=== PATIENT | female | born 1960 | race Caucasian/White ===

== ENCOUNTER 2017-08-05 22:28 | Emergency (ER) | payer BC ==
[~2017-08-05] VITALS: Ht 167.6 cm; Wt 113.4 kg
[~2017-08-05 22:28] MED LIST: POTA10IN IV
[2017-08-05 22:57] LABS: Basophils # (auto) 0.1 uL; Eosinophils # (auto) 0 uL; Hemoglobin 15.3 g/dL (12.2-16.2); Lymphocytes % (auto) 19.2 % (10.0-50.0); Red Cell Distribution Width 15.9 % (11.8-14.3)
[2017-08-05 22:59] LABS: Basophils % (auto) 1.1 % (0.0-2.0); Hematocrit 46.7 % (36.0-46.0); Lymphocytes # (auto) 2.2 uL; Mean Corpuscular Hemoglobin 25.9 pg (28.0-32.0); Mean Corpuscular Hgb Conc. 32.8 g/dL (32.0-36.0); Monocytes # (auto) 1.1 uL; Monocytes % (auto) 9.9 % (0.0-12.0); Neutrophils % (auto) 69.8 % (37.0-80.0); Nucleated Red Blood Cells % 0.1 %; Platelet Count (auto) 389 10^3/uL (140-450); Red Blood Cells 5.91 10^6/uL (4.0-5.20); White Blood Cell 11.4 10^3/uL (4.4-10.8)
[2017-08-05 23:14] LABS: INR 0.93 (0.9-1.15)
[2017-08-05 23:18] LABS: Albumin 3.2 g/dL (3.4-5.0); Anion Gap 12 (5-15); Calcium 8.6 mg/dL (8.5-10.1); Carbon Dioxide 24 mmol/L (21-32); Chloride 106 mmol/L (98-107); Glucose 118 mg/dL (74-106); Magnesium 2.1 mg/dL (1.6-2.6); Potassium 3.5 mmol/L (3.5-5.1); Sodium 142 mmol/L (136-145)
[2017-08-05 23:24] LABS: Alanine Aminotransferase 19 U/L (13-56); Alkaline Phosphatase 89 U/L (45-117); Aspartate Aminotransferase 12 U/L (15-37); BUN/Creatinine Ratio 14.4; Bilirubin, Total 0.4 mg/dL (0.2-1.0); Blood Urea Nitrogen 15 mg/dL (7-18); GFR African American 70 mL/min; GFR Non-African American 58 mL/min; Total Protein 6.4 g/dL (6.4-8.2)
[2017-08-06 00:18] VITALS: BP 138/74
== END 2017-08-06 01:08 | disposition home or self-care (01) ==
LOC: EDBD 22:28 → ER 22:28
DX: I47.1 Supraventricular tachycardia (principal); E03.9 Hypothyroidism, unspecified; I10 Essential (primary) hypertension
CPT/HCPCS: 36415; 71045; 80053; 83735; 83880; 84443; 84484; 85025; 85379; 85610; 85730; 93005

== ENCOUNTER 2018-05-23 06:06 | Inpatient (IN) | payer BC ==
[~2018-05-23] VITALS: Ht 172.7 cm; Wt 110.1 kg
[~2018-05-23 06:06] MED LIST changes: +ALPR1TAB PO; +BUME2TAB3 PO; +CHOL20009 PO; +LEVO100T8 PO; +MAGN400T5 PO; +MET50T PO; -POTA10IN IV; +QUET100T38 PO; +SPIR25TA8 PO
[2018-05-23] MEDS ORDERED: MIDAZOLAM HCL 1MG/1ML-2 ML VIAL ONE (07:02)
[2018-05-23] MEDS ORDERED: fentaNYL CITRATE 100 MCG/2 ML VL ONE (07:02)
[2018-05-23] MEDS ORDERED: LIDOCAINE 2%HCL (LOCAL ANESTH.) INJ 20ML MDV ONE (07:03)
[2018-05-23] MEDS ORDERED: ASPirin 325 MG TAB ONE (09:20)
[2018-05-23] MEDS ORDERED: NITROGLYCERIN 0.4 MG SL TAB SL PRN (09:45)
[2018-05-23] MEDS ORDERED: MORPHINE SULF INJ 2 MG/ML SYRINGE 1ML IV PRN (09:45)
[2018-05-23] MEDS ORDERED: ACETAMINOPHEN 500 MG TAB PO PRN (09:45)
[2018-05-23] MEDS ORDERED: ONDANSETRON HCL 4 MG/2 ML VIAL IV PRN (09:45)
[2018-05-23] MEDS ORDERED: HYDROcodone-ACET 5/325MG TAB PO PRN (09:45)
[2018-05-23] MEDS ORDERED: BUMETANIDE 1 MG TAB PO SCH (10:00)
[2018-05-23] MEDS ORDERED: SPIRONOLACTONE 25 MG TAB PO SCH (10:00)
[2018-05-23] MEDS ORDERED: MAGNESIUM OXIDE 400 MG TAB PO SCH (10:00)
[2018-05-23] MEDS ORDERED: CHOLECALCIFEROL (VITD3) 1,000 UNIT TAB PO SCH (10:00)
[2018-05-23] MEDS ORDERED: MAGNESIUM OXIDE 400 MG TAB ONE (11:55)
[2018-05-23] MEDS ORDERED: LOSARTAN POTASSIUM 25 MG TAB ONE (11:55)
[2018-05-23] MEDS ORDERED: CHOLECALCIFEROL (VITD3) 1,000 UNIT TAB ONE (11:55)
[2018-05-23] MEDS ORDERED: SPIRONOLACTONE 25 MG TAB ONE (11:55)
[2018-05-23] MEDS: LOSARTAN POTASSIUM 25 MG TAB PO SCH ×2 (12:00→21:00)
[2018-05-23] MEDS: SODIUM CHLOR 0.9% PF (SALINE LOCK) 10ML VIAL/SYR IV SCH ×2 (15:00→23:41)
[2018-05-23 20:15] VITALS: BP 139/82
--- NOTE | 2018-05-23 20:15 | NUR ---
Telemetry admit from [facility] JABARI ARRIAZA admitted to Telemetry unit after SBAR received. Patient oriented to Adrianna queen RN, unit, room, bed, and unit policies regarding patient care and visiting hours. Patient now on continuous telemetry monitoring, tele box # [id number] and telemetry reading on arrival to unit is SINUS RHYTHM AT 83. Patient placed on bedside oxygen, weighed by bedscale and encouraged to call if they need something. All questions and concerns addressed, patient verbalized understanding. Note: DRESSING TO RIGHT GROIN, CLEAN, DRY AND INTACT. NO BRUISING NOTED TO RIGHT GROIN.
[2018-05-23 20:30] VITALS: BP 139/82
[2018-05-23] MEDS ORDERED: QUEtiapine FUMARATE 100 MG TAB PO SCH (22:00)
[2018-05-23] MEDS ORDERED: ALPRAZOLAM 1 MG PO SCH (22:00)
--- NOTE | 2018-05-23 23:00 | NUR ---
SPOKE WITH HOSPITALIST, MADE AWARE THAT PATIENT'S OWN MEDICATION OF XANAX XR IS NOT AVAILABLE AND PATIENT IS REQUESTING FOR XANAX, ORDERED XANAX 0.5 MG PO ONE DOSE AT THIS TIME. WILL NOTIFY HOSPITALIST IN THE MORNING. CONTINUE PATIENT CARE.
[2018-05-23] MEDS ORDERED: ALPRAZolam 0.5 MG TAB PO ONE (23:30)
--- NOTE | 2018-05-24 02:31 | NUR ---
RESTING ON BED AT THIS TIME WITH NO RESPIRATORY DISTRESS NOTED. CONTINUE PATIENT CARE.
[2018-05-24 04:53] VITALS: BP 128/67
[2018-05-24] MEDS: SODIUM CHLOR 0.9% PF (SALINE LOCK) 10ML VIAL/SYR IV SCH (06:13)
[2018-05-24] MEDS ORDERED: LEVOTHYROXINE SODIUM 100 MCG TAB PO SCH (07:00)
--- NOTE | 2018-05-24 07:11 | NUR ---
DR. MATHIS CALLED BACK GAVE DC ORDER.
[2018-05-24] MEDS ORDERED: ASPI-231 PO (07:16)
[2018-05-24] MEDS ORDERED: LOSA25TA8 PO (07:16)
--- NOTE | 2018-05-24 07:20 | NUR ---
OPENING SHIFT PATIENT AWAKE, ALERT, AND ORIENTED X4. RESPIRATIONS EVEN AND UNLABORED. NO S/S OF DISTRESS, SOB, OR PAIN. DISCUSSED POC WITH PATIENT. PATIENT VERBALIZED UNDERSTANDING. BED IS IN LOWEST POSITION, SIDE RAILS UP X2, AND CALL LIGHT WITHIN REACH. WILL CONTINUE TO MONITOR Q1 HOUR AND PRN
[2018-05-24 07:27] VITALS: BP 128/67
--- NOTE | 2018-05-24 08:31 | NUR ---
PRESCRIPTIONS CALLED IN MEDICATIONS CALLED IN TO [facility] LOCATED OFF OF [facility] [phone] PHARMACY NOT OPEN. MESSAGE LEFT WITH INFORMATION REQUESTED BY PHARMACY: PATIENT NAME AND . RN NAME AND CONTACT INFORMATION/ HOSPITAL EMPLOYED. PRESCRIBING PHYSICIAN AND CONTACT INFORMATION. MEDICATION PRESCRIPTION INFORMATION
--- NOTE | 2018-05-24 08:36 | NUR ---
DISCHARGE PAPER WORK D/C PAPER WORK SIGNED AND EDUCATION PROVIDED. PATIENT IS AWAITING TRANSPORTATION FROM HER INSTRUCTED TO CALL R.N. WHEN ARRIVES
[2018-05-24 09:13] VITALS: BP 102/73
--- NOTE | 2018-05-24 09:30 | NUR ---
DISCHARGE Discharge instructions given as ordered. Encourage to follow up with Dr. Vilchis as instructed. All questions and concerns addressed. Patient verbalized understanding. IV removed with catheter intact. Telemetry unit returned to [facility]. Patient taken to vehicle via wheelchair with all personal belongings, accompanied by staff and family member. No distress noted at time of departure.
[2018-05-24] MEDS ORDERED: ASPirin 81 mg TAB PO SCH (10:00)
== END 2018-05-24 09:30 | disposition home or self-care (01) | DRG 274 ==
LOC: CATH 06:06 → TELE-CENTR 20:30
PROVIDERS: ADMIT Internal Medicine; ATTEND Internal Medicine
PROC: 02583ZZ Destruction of Conduction Mechanism, Percutaneous Approach (ICD-10-PCS; principal; 2018-05-23)
PROC: 4A0234Z Measurement of Cardiac Electrical Activity, Percutaneous Approach (ICD-10-PCS; 2018-05-23)
PROC: 02K83ZZ Map Conduction Mechanism, Percutaneous Approach (ICD-10-PCS; 2018-05-23)
PROC: 4A023FZ Measurement of Cardiac Rhythm, Percutaneous Approach (ICD-10-PCS; 2018-05-23)
DX: I47.1 Supraventricular tachycardia (principal); Z79.82 Long term (current) use of aspirin
CPT/HCPCS: A6257; G0378; J2250